=== PATIENT | female | born 1980 | race Two or more races ===

== ENCOUNTER 2017-09-12 21:11 | Emergency (ER) | payer OTHER ==
[~2017-09-12] VITALS: Ht 170.2 cm; Wt 94.9 kg
[2017-09-12] MEDS ORDERED: EPINEPHrine HCL 1 MG/1 ML AMP SC ONE (22:00)
[2017-09-12] MEDS ORDERED: SODIUM CHLORIDE 0.9% 1,000 ML IV ONE (22:00)
[2017-09-12] MEDS ORDERED: IPRATROPIUM BROM 0.5 MG/2.5ML INH SOL NEB ONE (22:00)
[2017-09-12] MEDS ORDERED: methylPREDNISolone SOD SUCC 125 MG/2 ML VL IV ONE (22:00)
[2017-09-12] MEDS ORDERED: ALBUTEROL SULF 2.5 MG/0.5ML(0.5%) NEB SOLN NEB ONE (22:00)
[2017-09-12 23:20] VITALS: BP 135/72
== END 2017-09-13 00:04 | disposition home or self-care (01) ==
LOC: ER 21:20
DX: J45.901 Unspecified asthma with (acute) exacerbation (principal); T78.40XA Allergy, unspecified, initial encounter; Z98.51 Tubal ligation status
CPT/HCPCS: 71020; 94640; 94761; 96361; 96372; 96374; 99284; J0171; J2930; J7030